=== PATIENT | male | born 1950 | race Asian ===

== ENCOUNTER 2024-07-02 06:18 | Day surgery (SDC) | payer OTHER, MEDICARE ==
[2024-06-25 12:28] VITALS: BMI 27.1
[2024-07-02] MEDS ORDERED: TETRACAINE 0.5% OPHTH SOLN 2 ML BOTTLE ONE (07:16)
[2024-07-02] MEDS ORDERED: POVIDONE-IODINE 5% OPHTHALMIC PREP 30 ML SOLUTION ONE (07:16)
[2024-07-02] MEDS ORDERED: ceFAZolin SODIUM 1 GM VIAL ONE ×2 (07:16→07:23)
[2024-07-02] MEDS ORDERED: ERYTHROMYCIN 0.5% OPHTHALMIC OINTMENT 3.5 GM TUBE ONE (07:16)
[2024-07-02] MEDS ORDERED: LIDOCAINE 1%/EPI 1:100000 (20 ML MULTI DOSE VIAL) ONE (07:17)
[2024-07-02] MEDS ORDERED: MIDAZOLAM HCL 2 MG/2 ML SINGLE DOSE VIAL ONE (07:23)
[2024-07-02] MEDS ORDERED: PROPOFOL 40 ML ONE (07:23)
[2024-07-02] MEDS ORDERED: ONDANSETRON 4 MG/2 ML VIAL ONE (08:26)
[2024-07-02] MEDS ORDERED: oxyCODONE HCL 5 MG TABLET PO PRN (08:40)
[2024-07-02] MEDS ORDERED: ONDANSETRON 4 MG/2 ML VIAL IVPUSH PRN (08:40)
[2024-07-02] MEDS ORDERED: LACTATED RINGERS SOLUTION 1,000 ML IV SCH (08:45)
[2024-07-02] MEDS ORDERED: ACETAMINOPHEN INJECTION 100 ML ONE (08:46)
[2024-07-02] MEDS: ACETAMINOPHEN 1000 MG/100 ML BAG IVPB ONE (08:47)
[2024-07-02 09:05] VITALS: TEMP 97.3
[2024-07-02] MEDS ORDERED: FENTANYL CITRATE/PF 50 MCG/ML VIAL ONE (09:08)
[2024-07-02] MEDS ORDERED: oxyCODONE HCL 5 MG TABLET ONE (09:50)
[2024-07-02 09:57] VITALS: RESP 18
[2024-07-02 11:09] VITALS: BP 147/85; PULSE 71
== END 2024-07-02 11:00 | disposition home or self-care (01) ==
LOC: FASU 06:18
PROVIDERS: ATTEND Ophthalmology
PROC: 08SP0ZZ Reposition Left Upper Eyelid, Open Approach (ICD-10-PCS; principal; 2024-07-02 08:03)
DX: H02.402 Unspecified ptosis of left eyelid (principal)
CPT/HCPCS: 82962; 88304-TC; 94760; J0131